=== PATIENT | female | born 1930 | race Asian ===

== ENCOUNTER 2017-04-21 07:29 | Day surgery (SDC) | payer OTHER, BC ==
[~2017-04-21] VITALS: Ht 142.2 cm; Wt 43.0 kg
[~2017-04-21 07:29] MED LIST: FOSRENOL500 MG PO; RENAL-VITE TAB0.8 MG PO; STOOL SOFTENER100 MG PO; VITAMIN D32000 UNI1 PO
[2017-04-21 09:15] LABS: METH RESISTANT S AUREUS PCR NEGATIVE (NEGATIVE); PROBE CHECK PASS; SPECIMEN PROCESSING CONTROL PASS
== END 2017-04-21 10:50 | disposition home or self-care (01) ==
LOC: CATH 07:29
PROVIDERS: Surgery
DX: T82.858A Stenosis of other vascular prosthetic devices, implants and grafts, initial encounter (principal); T82.590A Other mechanical complication of surgically created arteriovenous fistula, initial encounter; I12.0 Hypertensive chronic kidney disease with stage 5 chronic kidney disease or end stage renal disease; N18.6 End stage renal disease; Z99.2 Dependence on renal dialysis; Z86.73 Personal history of transient ischemic attack (TIA), and cerebral infarction without residual deficits; I73.9 Peripheral vascular disease, unspecified; Z96.642 Presence of left artificial hip joint; I71.4 Abdominal aortic aneurysm, without rupture; Z95.828 Presence of other vascular implants and grafts
CPT/HCPCS: 87641; C1725; C1769; C1894; J1644; J2250; J2405; J3010

== ENCOUNTER 2017-06-27 11:53 | Day surgery (SDC) | payer OTHER, BC ==
[~2017-06-27] VITALS: Ht 142.2 cm; Wt 41.5 kg
[~2017-06-27 11:53] MED LIST changes: +NORVASC2.5 MG PO; +SODIUM BICARBO325 MG PO; +TIROSINT25 MCG PO
[2017-06-27 12:23] VITALS: BP 135/68
[2017-06-27 12:45] LABS: HEMATOCRIT 30.7 % (36.0-46.0); MCH 33.7 PG (29.0-34.0); MCHC 34.5 G/DL (30.0-36.0); MCV 97.5 FL (83-99); MEAN PLAT.VOLUME 11.6 uM^3 (9.5-12.4); PLATELET COUNT 63 K/uL (156-360); RBC DIS.WIDTH-CV 13.3 % (11.8-14.6); RBC DIS.WIDTH-SD 47.3 % (39-53); RED BLOOD COUNT 3.15 M/uL (3.80-5.20); WHITE BLOOD COUNT 4.8 K/uL (4.1-10.2)
[2017-06-27 12:59] LABS: CHLORIDE 93 mEq/L (99-109); SODIUM 131 mEq/L (136-147)
[2017-06-27 13:01] LABS: GLUCOSE 103 mg/dL (70-99)
[2017-06-27 13:02] LABS: ANION GAP 14 MEQ/L (2-14)
[2017-06-27 13:05] LABS: GFR ESTIMATE (CALCULATED) 8 mL/min/
[2017-06-27 13:06] LABS: UREA NITROGEN (BUN) 57 mg/dL (9-23)
[2017-06-27 15:45] VITALS: BP 138/63
[2017-06-27 16:20] VITALS: BP 141/63
== END 2017-06-27 16:28 | disposition home or self-care (01) ==
LOC: SDC 11:53
PROVIDERS: Surgery
DX: T82.41XA Breakdown (mechanical) of vascular dialysis catheter, initial encounter (principal); I12.0 Hypertensive chronic kidney disease with stage 5 chronic kidney disease or end stage renal disease; N18.6 End stage renal disease; Z99.2 Dependence on renal dialysis; Z86.73 Personal history of transient ischemic attack (TIA), and cerebral infarction without residual deficits; I73.9 Peripheral vascular disease, unspecified; R42 Dizziness and giddiness; R94.31 Abnormal electrocardiogram [ECG] [EKG]
CPT/HCPCS: 80048; 85027; 93005; C1768; C2628; J0690; J1100; J1644; J2405; J2720; J3010

== ENCOUNTER 2017-08-18 07:15 | Day surgery (SDC) | payer OTHER, BC ==
[~2017-08-18] VITALS: Ht 142.2 cm; Wt 42.5 kg
[~2017-08-18 07:15] MED LIST changes: +CALCITRIOL0.25 MCG PO; +LEVOTHYROXINE25 MCG PO
== END 2017-08-18 09:12 | disposition home or self-care (01) ==
LOC: CATH 07:15
PROC: 057Y3DZ Dilation of Upper Vein with Intraluminal Device, Percutaneous Approach (ICD-10-PCS; principal; 2017-08-18)
DX: T82.41XA Breakdown (mechanical) of vascular dialysis catheter, initial encounter (principal); Y83.2 Surgical operation with anastomosis, bypass or graft as the cause of abnormal reaction of the patient, or of later complication, without mention of misadventure at the time of the procedure; N18.6 End stage renal disease; Z99.2 Dependence on renal dialysis
CPT/HCPCS: 87641; C1725; C1769; C1874; C1894; J1644; J2250; J3010

== ENCOUNTER 2017-12-14 07:47 | Day surgery (SDC) | payer OTHER, BC ==
[~2017-12-14] VITALS: Ht 142.2 cm; Wt 43.0 kg
[~2017-12-14 07:47] MED LIST changes: -FOSRENOL500 MG PO; -LEVOTHYROXINE25 MCG PO; +LEVOTHYROXINE50 MCG PO; +LOSARTAN POTASS25 MG PO; +RENAPLEX TABLE1 EACH PO; +RENVELA800 MG PO; -SODIUM BICARBO325 MG PO; +SODIUM CHLORIDE1 G1 PO; -VITAMIN D32000 UNI1 PO
== END 2017-12-14 10:35 | disposition home or self-care (01) ==
LOC: CATH 07:47
PROC: 3E03317 Introduction of Other Thrombolytic into Peripheral Vein, Percutaneous Approach (ICD-10-PCS; principal; 2017-12-14)
PROC: B51W1ZZ Fluoroscopy of Dialysis Shunt/Fistula using Low Osmolar Contrast (ICD-10-PCS; principal; 2017-12-14)
PROC: 057Y3ZZ Dilation of Upper Vein, Percutaneous Approach (ICD-10-PCS; principal; 2017-12-14)
PROC: 05HY33Z Insertion of Infusion Device into Upper Vein, Percutaneous Approach (ICD-10-PCS; principal; 2017-12-14)
DX: T82.858A Stenosis of other vascular prosthetic devices, implants and grafts, initial encounter (principal); I12.0 Hypertensive chronic kidney disease with stage 5 chronic kidney disease or end stage renal disease; N18.6 End stage renal disease; Z99.2 Dependence on renal dialysis; I71.4 Abdominal aortic aneurysm, without rupture; Z86.73 Personal history of transient ischemic attack (TIA), and cerebral infarction without residual deficits; I73.9 Peripheral vascular disease, unspecified; B19.10 Unspecified viral hepatitis B without hepatic coma
CPT/HCPCS: 87641; C1725; C1769; C1894; J1644; J2250; J3010